=== PATIENT | female | born 1935 | race Caucasian/White ===

== ENCOUNTER → 2016-07-09 | Outpatient (CLI) | payer MEDICARE, BC ==
[~2016-07-09] MED LIST: ALBU18HF INH; ALPR0.25 PO; ASPI-515 PO; ATOR80TA PO; BUDE10.22 INH; CLOP75TA22 PO; DICL100G8 TP; IPRA15SP NAS; ISOS30TA8 PO; IVAB5TAB PO; LISI5TAB7 PO; PANT40TA5 PO; POTA10TA90 PO; SPIR50TA2 PO; TRAM100T2 PO
== END | disposition home or self-care (01) ==
LOC: RAD 13:39
PROVIDERS: ATTEND Internal Medicine Cardiovascular Disease
DX: J44.9 Chronic obstructive pulmonary disease, unspecified (principal); Z95.0 Presence of cardiac pacemaker
CPT/HCPCS: 78582; A9540; A9558

== ENCOUNTER 2017-04-07 15:01 | Inpatient (IN) | payer MEDICARE, BC ==
[~2017-04-07] VITALS: Ht 165.1 cm; Wt 63.6 kg
[~2017-04-07 15:01] MED LIST changes: -CLOP75TA22 PO; +CLOP75TA52 PO; +DICL100G19 TP; -DICL100G8 TP; +POTA10TA6 PO; -POTA10TA90 PO
[2017-04-07] MEDS ORDERED: SODIUM CHLORIDE 0.9% 1,000 ML IV ONE (15:03)
[2017-04-07] MEDS ORDERED: SODIUM CHLORIDE 0.9% 1,000ML IVBOLUS ONE (15:30)
[2017-04-07] MEDS ORDERED: SODIUM CHLORIDE FLUSH 10ML SYR IVF ONE (15:30)
[2017-04-07] MEDS ORDERED: PLEASE ENTER ALLERGIES MC SCH (15:30)
[2017-04-07] MEDS ORDERED: PLEASE ENTER HEIGHT AND WEIGHT MC SCH (15:30)
[2017-04-07 15:46] LABS: BASOPHILS % (AUTO) 0 % (0-1); EOSINOPHILS % (AUTO) 0 % (1-7); LYMPHOCYTES # (AUTO) 0.55 x10^3/uL (1-3.4); LYMPHOCYTES % (AUTO) 11 % (22-44); MD NO; MEAN CORPUSCULAR HEMOGLOBIN 34.2 pg (27.0-34.8); MEAN CORPUSCULAR HGB CONC 33.4 g/dL (32.4-35.8); MEAN CORPUSCULAR VOLUME 102.2 fL (80-100); MEAN PLATELET VOLUME 9.6 fL (7.4-10.4); MONOCYTES # (AUTO) 0.46 x10^3/uL (0.2-0.8); MONOCYTES % (AUTO) 9 % (2-9); NEUTROPHILS % (AUTO) 80 % (42-75); PLATELET COUNT 112 x10^3/uL (130-400); RED CELL DISTRIBUTION WIDTH 16.9 % (9.6-15.2)
[2017-04-07 15:58] LABS: ALBUMIN 3.2 g/dL (3.4-5.0); ANION GAP 14 mmol/L (5-15); CALCIUM 9.6 mg/dL (8.5-10.1); CHLORIDE 86 mmol/L (98-107)
[2017-04-07 16:03] LABS: INTERNATIONAL NORMALIZED RATIO 1.32 (0.93-1.1); PROTHROMBIN TIME 13.7 Seconds (9.6-11.5)
[2017-04-07 16:04] LABS: ALANINE AMINOTRANSFERASE 41 U/L (12-78); ALKALINE PHOSPHATASE 137 U/L (45-117); BILIRUBIN,TOTAL 3.7 mg/dL (0.2-1.0); CREATININE 2.34 mg/dL (0.55-1.02); TOTAL PROTEIN 6.3 g/dL (6.4-8.2)
[2017-04-07 16:12] LABS: TROPONIN I 0.445 ng/mL (0.000-0.045)
[2017-04-07] MEDS ORDERED: SODIUM CHLORIDE FLUSH 10ML SYR IVF PRN (16:30)
[2017-04-07] MEDS ORDERED: AMBR10TA3 PO (16:41)
[2017-04-07] MEDS ORDERED: FURO40TA6 PO (16:43)
[2017-04-07] MEDS ORDERED: TADA20TA33 PO (16:45)
[2017-04-07] MEDS ORDERED: DOCU100C33 PO (16:45)
[2017-04-07] MEDS ORDERED: UMEC1DIS INH (16:48)
[2017-04-07] MEDS ORDERED: AMLO2.5T2 PO (16:50)
[2017-04-07] MEDS ORDERED: METH500T5 PO (16:52)
[2017-04-07] MEDS ORDERED: ONDANSETRON 2MG/ML, 2ML IVPush PRN (17:30)
[2017-04-07] MEDS ORDERED: OXYcodone IR 5MG TABLET PO PRN (17:30)
[2017-04-07] MEDS ORDERED: POLYETHYLENE GLYCOL 17 GM PACKET PO PRN (17:30)
[2017-04-07] MEDS ORDERED: ACETAMINOPHEN 325 MG TABLET PO PRN (17:30)
[2017-04-07] MEDS ORDERED: POTASSIUM CHLORIDE 40 MEQ in SODIUM CHLORIDE 0.9% 500 ML IV ONE (17:30)
[2017-04-07] MEDS ORDERED: ALBUTEROL SULFATE 2.5 MG/3 ML NPPB PRN (17:30)
[2017-04-07 17:49] LABS: TROPONIN I 0.443 ng/mL (0.000-0.045)
[2017-04-07] MEDS ORDERED: FUROSEMIDE 40 MG/4 ML IV ONE (18:30)
[2017-04-07] MEDS: HEPARIN 5,000 UNITS/ML, 1ML SQ SCH (18:46)
[2017-04-07] MEDS: IVABRADINE HCL 5 MG HOMEMEDPO SCH (21:00)
[2017-04-07] MEDS ORDERED: ATORVASTATIN 80 MG TABLET PO SCH (21:00)
[2017-04-07] MEDS: FAMOTIDINE 20 MG/2 ML IVPush SCH (21:27)
[2017-04-07 21:33] VITALS: BP 95/50
[2017-04-07] MEDS: FLUTICASONE/VILANTEROL 200-25MCG/INH INH SCH (22:00)
[2017-04-07 22:46] LABS: CULTURE INDICATED? YES; MICROSCOPIC INDICATED
[2017-04-07 23:35] LABS: TROPONIN I 0.452 ng/mL (0.000-0.045)
[2017-04-08] MEDS: HEPARIN 5,000 UNITS/ML, 1ML SQ SCH ×2 (01:48→08:53)
[2017-04-08 04:00] VITALS: BP 98/54
[2017-04-08 04:30] LABS: BASOPHILS # (AUTO) 0.02 x10^3/uL (0-0.1); BASOPHILS % (AUTO) 0 % (0-1); EOSINOPHILS % (AUTO) 0 % (1-7); LYMPHOCYTES # (AUTO) 0.54 x10^3/uL (1-3.4); LYMPHOCYTES % (AUTO) 9 % (22-44); MD NO; MEAN CORPUSCULAR HEMOGLOBIN 34.2 pg (27.0-34.8); MEAN CORPUSCULAR HGB CONC 33.7 g/dL (32.4-35.8); MEAN CORPUSCULAR VOLUME 101.6 fL (80-100); MEAN PLATELET VOLUME 9.4 fL (7.4-10.4); MONOCYTES # (AUTO) 0.55 x10^3/uL (0.2-0.8); MONOCYTES % (AUTO) 9 % (2-9); NEUTROPHILS # (AUTO) 5.19 x10^3/uL (1.8-6.8); NEUTROPHILS % (AUTO) 83 % (42-75); PLATELET COUNT 106 x10^3/uL (130-400); RED BLOOD COUNT 3.33 x10^6/uL (3.82-5.3); RED CELL DISTRIBUTION WIDTH 16.8 % (9.6-15.2)
[2017-04-08 04:39] LABS: ALANINE AMINOTRANSFERASE 39 U/L (12-78); ANION GAP 12 mmol/L (5-15); CALCIUM 9.4 mg/dL (8.5-10.1); CHLORIDE 91 mmol/L (98-107); CREATININE 2.23 mg/dL (0.55-1.02)
[2017-04-08 04:42] LABS: ALKALINE PHOSPHATASE 129 U/L (45-117); BILIRUBIN,TOTAL 3.6 mg/dL (0.2-1.0)
[2017-04-08] MEDS ORDERED: LEVOTHYROXINE 50 MCG TABLET PO SCH (07:00)
[2017-04-08] MEDS ORDERED: CEFTRIAXONE PMX 1GM/50ML 50 ML IV SCH (07:00)
[2017-04-08] MEDS ORDERED: POTASSIUM CHLORIDE 10% 40 MEQ/30 ML UDC PO ONE (07:00)
[2017-04-08 08:26] LABS: FOLATE LEVEL > 20.0 ng/mL (3.1-17.5)
[2017-04-08] MEDS: FAMOTIDINE 20 MG/2 ML IVPush SCH (08:52)
[2017-04-08] MEDS: FLUTICASONE/VILANTEROL 200-25MCG/INH INH SCH (08:52)
[2017-04-08] MEDS ORDERED: SENNA/DOCUSATE TABLET PO SCH (09:00)
[2017-04-08] MEDS: IVABRADINE HCL 5 MG HOMEMEDPO SCH (09:00)
[2017-04-08] MEDS ORDERED: TADALAFIL 20 MG HOMEMEDPO SCH (09:00)
[2017-04-08] MEDS ORDERED: TEMPLATE NON-FORMULARY MED. (Ambrisentan (Letairis**) 10 MG) HOMEMEDPO SCH (09:00)
[2017-04-08] MEDS ORDERED: ASPIRIN 81 MG TABLET EC PO SCH (09:00)
[2017-04-08] MEDS ORDERED: CLOPIDOGREL 75 MG TABLET PO SCH (09:00)
[2017-04-08] MEDS ORDERED: LORazepam 2 MG/ML, 1ML IV PRN (12:00)
[2017-04-08] MEDS ORDERED: ATROPINE OPHTH SOLN 1%, 2ML PO PRN (12:00)
[2017-04-08] MEDS ORDERED: MORPHINE SULFATE 4 MG/ML, 1ML IVPush ONE (14:00)
[2017-04-09] MEDS ORDERED: LEVOTHYROXINE 50 MCG TABLET PO SCH (07:30)
== END 2017-04-09 10:50 | disposition expired | DRG 682 ==
LOC: ED 16:27 → EDIP 16:28 → ED 17:27 → CCU 17:55 → 5SO 04-08 17:34
PROVIDERS: ADMIT Internal Medicine; ATTEND Internal Medicine
DX: N17.9 Acute kidney failure, unspecified (principal); I50.43 Acute on chronic combined systolic (congestive) and diastolic (congestive) heart failure; J96.01 Acute respiratory failure with hypoxia; G93.41 Metabolic encephalopathy; I95.9 Hypotension, unspecified; I27.20 Pulmonary hypertension, unspecified; D69.6 Thrombocytopenia, unspecified; E87.1 Hypo-osmolality and hyponatremia; D75.89 Other specified diseases of blood and blood-forming organs; Z99.81 Dependence on supplemental oxygen; N18.3 Chronic kidney disease, stage 3 (moderate); I25.10 Atherosclerotic heart disease of native coronary artery without angina pectoris; E87.6 Hypokalemia; Z66 Do not resuscitate; I25.5 Ischemic cardiomyopathy; F41.9 Anxiety disorder, unspecified; E78.5 Hyperlipidemia, unspecified; Z51.5 Encounter for palliative care; F03.90 Unspecified dementia, unspecified severity, without behavioral disturbance, psychotic disturbance, mood disturbance, and anxiety; J43.9 Emphysema, unspecified; Z84.89 Family history of other specified conditions; Z74.01 Bed confinement status; Z95.0 Presence of cardiac pacemaker; I25.2 Old myocardial infarction; Z87.891 Personal history of nicotine dependence
CPT/HCPCS: 36415; 36600; 71045; 80053; 81001; 82607; 82746; 82803; 83605; 83735; 83880; 84100; 84443; 84484; 85025; 85610; 85730; 87040; 87077; 87081; 87086; 87186; 93005; 93306; 94640; 96360; 96361; J0696; J1644; J1940; J2270; J3480; J2060; J7030; J7040; S0028